=== PATIENT | female | born 1995 | race Caucasian/White ===

== ENCOUNTER → 2021-05-02 10:35 | Outpatient (CLI) | payer OTHER, SELFPAY ==
[2021-05-04 18:35] LABS: AFP, Serum 20.8 ng/mL (.); Calc Gestational Age Ultrasound (.); Estriol, Free 0.41 ng/mL (.); Inhibin A, Dimeric 209.86 pg/mL (.); Inhibin A, MoM See interpretation. (.); Maternal Ethnicity Caucasian (.); Maternal Weight 211 lbs (.); Number of Fetuses No (.); OSBR Risk 1 IN 10000 (.); Results Report (.); Test Results See interpretation. (.); hCG, MoM See interpretation. (.); hCG, Serum 21729 mIU/mL (.)
== END ==
PROVIDERS: Referring Provider Family Medicine; Visit Provider Family Medicine
DX: Z34.90 Encounter for supervision of normal pregnancy, unspecified, unspecified trimester (principal); Z3A.16 16 weeks gestation of pregnancy
CPT/HCPCS: 36415; 82105; 82677; 84702; 86336

== ENCOUNTER → 2021-06-01 10:04 | Outpatient (CLI) | payer OTHER, SELFPAY ==
--- NOTE | 2021-06-01 10:05 | DI.US.S_ITS ---
PROCEDURE: US OB >= 14 WEEKS FETUS INDICATIONS: ANATOMY OUTSIDE/PRIOR DATING DATA: Last menstrual period (LMP): 01/08/2021. LMP-based estimated date of delivery (BETTY): 10/15/2021 First dating scan (date and location): 06/01/2021 . Estimated date of delivery (BETTY) from first dating scan: 08/15/2022 . TECHNIQUE: Real-time scanning was performed of the fetus, with image documentation and biometric measurements. Endovaginal scanning: No COMPARISON: None. FINDINGS: General: A single living intrauterine gestation is present. Presentation: Variable. Placenta: Placental position is posterior , without previa. Amniotic fluid index: 16.0 cm, normal range is 5-24 cm. heart rate: 139 beats per minute. Maternal cervical canal: 8.2 cm long. Normal lower limit is 2.5 cm. biometrics: Biparietal diameter: 20 weeks 4 days Head circumference: 20 weeks 1 day Abdominal circumference: 20 weeks 4 days Femur length: 20 weeks 2 days Estimated gestational age from initial scan: not applicable. Composite gestational age from present scan: 20 weeks 3 days Estimated weight and percentile: 353 g; 37th percentile based on LMP. Measurement variability for biometric dating: +/- 7 days from 14 weeks to 15 weeks 6 days gestation, +/- 10 days from 16 weeks to 21 weeks 6 days gestation, +/- 2 weeks from 22 weeks to 27 weeks 6 days gestation, +/- 3 weeks for 28 weeks gestation or later. weight reference: 4500 g or EFW >90/95% is considered macrosomia or large for gestational age. EFW <10% is small for gestational age. EFW 5% or less is considered intra-uterine growth restriction. Anatomic survey: Neuro: Ventricles are non-dilated at less than 10 mm. Cisterna magna is normal at 3-11 mm. Cerebellum is normal in size and morphology. Nuchal skin fold: Normal at less than 6 mm between 14-21 weeks gestational age. Face: Suboptimally visualized. Spine: No evidence for spina bifida. Heart: Suboptimally visualized. Diaphragm: Diaphragm is intact. Stomach: Left-sided stomach is present. Kidneys: Mild right renal pyelectasis with the renal pelvis measuring 7.0 mm. Normal is less than 5 mm in 2nd trimester, less than 7 mm in 3rd trimester. Cord: 3-vessel cord has orthotopic insertion. Placental cord insertion site not well seen. Bladder: Normal in size. Extremities: All 4 extremities identified. IMPRESSION: 1. 20 weeks living IUP. 2. Limited anatomic survey as above and there is mild pyelectasis of the right kidney. Follow-up recommended. Dictated by: Otilio Amado [facility] Interpreted: Samantha Nam MD on 06/01/2021 at 13:05 Transcribed by: AMARA on 06/01/2021 at 13:08 Approved by: Samantha Nam M.D. on 06/01/2021 at 13:10
== END ==
PROVIDERS: PCP Family Medicine; Referring Provider Family Medicine; Visit Provider Family Medicine
DX: Z36.89 Encounter for other specified antenatal screening (principal); Z3A.20 20 weeks gestation of pregnancy
CPT/HCPCS: 76811

== ENCOUNTER → 2021-06-15 11:56 | Outpatient (CLI) | payer OTHER, SELFPAY ==
--- NOTE | 2021-06-15 11:58 | DI.US.S_ITS ---
PROCEDURE: US OB FOLLOW UP INDICATIONS: RE-EVALUATE OUTSIDE/PRIOR DATING DATA: Last menstrual period (LMP): 01/08/2021. LMP-based estimated date of delivery (BETTY): 10/15/2021. First dating scan (date and location): 06/01/2021. Estimated date of delivery (BETTY) from first dating scan: 10/16/2021. TECHNIQUE: Real-time scanning was performed of the fetus, with image documentation. COMPARISON: [facility], , OB >= 14 WEEKS FETUS, 06/01/2021, 11:04. FINDINGS: A single living intrauterine gestation is present. Presentation: Vertex. Placenta: Placental position is posterior, without previa. Amniotic fluid index: 11.7 cm, normal range is 5-24 cm. heart rate: 157 beats per minute. Maternal cervical canal: 3.9 cm long. Normal lower limit is 2.5 cm. Estimated gestational age from initial scan: 22 weeks, 3 days. face/lips/orbits, four-chamber heart and ventricular outflow tracts, as well as right upper extremity are visualized and are within normal limits. Prominent right renal pelvis is again seen measures 6.3 mm in diameter. IMPRESSION: 1. Single live intrauterine with fetus in vertex presentation. heart rate is 157 beats per minute. Normal amount of amniotic fluid. 2. facial profile, four-chamber heart and ventricular outflow tract and right upper extremity are visualized and are within normal limits. Mild prominence of right renal pelvis is again seen measures 6.3 cm in diameter improved since previous study which measured 7 mm in diameter. Dictated by: Yaya Bah M.D. on 06/15/2021 at 15:58 Approved by: Yaya Bah M.D. on 06/15/2021 at 16:01
== END ==
PROVIDERS: PCP Family Medicine; Referring Provider Family Medicine; Visit Provider Family Medicine
DX: O28.3 Abnormal ultrasonic finding on antenatal screening of mother (principal); Z3A.22 22 weeks gestation of pregnancy
CPT/HCPCS: 76816

== ENCOUNTER 2021-07-09 00:56 | Outpatient (CLI) | payer OTHER, SELFPAY | END 2021-07-09 01:41 | disposition home or self-care (01) | LOC: OB 07-12 07:41 | PROVIDERS: PCP Family Medicine; Referring Provider Family Medicine; Visit Provider Family Medicine | DX: O20.9 Hemorrhage in early pregnancy, unspecified (principal); Z3A.25 25 weeks gestation of pregnancy | CPT/HCPCS: 59025; G0378; G0379 ==

== ENCOUNTER → 2021-07-27 10:35 | Outpatient (CLI) | payer OTHER, SELFPAY ==
[2021-07-27 13:01] LABS: Add Manual Diff / Slide Review NO; Basophils Absolute Auto 0 /uL (0-100); Basophils Percent Auto 0.4 % (0-2); Eosinophils Absolute Auto 100 /uL (0-450); Eosinophils Percent Auto 0.6 % (2-4); Hematocrit 33.7 % (36-46); Hemoglobin 11.4 g/dL (12.0-16.0); Lymphocytes Absolute Auto 2600 /uL (1100-4500); Lymphocytes Percent Auto 27.5 % (25-40); Mean Corpuscular HGB Conc 33.9 % (30-36); Mean Corpuscular Hemoglobin 28.6 PG (26-34); Mean Corpuscular Volume 84.4 fL (80-100); Monocytes Absolute Auto 500 /uL (0-900); Monocytes Percent Auto 5.5 % (3-14); Neutrophils Absolute Auto 6200 /uL (1500-7000); Platelet Count 222 X10^3/uL (150-400); Red Cell Distribution Width 12.8 % (11.6-14.8); White Blood Cell Count 9.3 X10^3/uL (4.5-11.0)
[2021-07-27 13:12] LABS: GTT (PREG) 1 Hour PP 50gm Dose 124 mg/dL (76-139)
== END ==
PROVIDERS: PCP Family Medicine; Referring Provider Family Medicine; Visit Provider Family Medicine
DX: Z3A.26 26 weeks gestation of pregnancy (principal); Z01.83 Encounter for blood typing
CPT/HCPCS: 36415; 82950; 85025; 86850; 86900; 86901

== ENCOUNTER → 2021-08-01 09:28 | Outpatient (CLI) | payer OTHER, SELFPAY ==
--- NOTE | 2021-08-01 09:29 | DI.US.S_ITS ---
PROCEDURE: US OB LIMITED INDICATIONS: F/U MILD PROMINENCE OF RT RENAL PELVIS OUTSIDE/PRIOR DATING DATA: Last menstrual period (LMP): 01/08/2021. LMP-based estimated date of delivery (BETTY): 10/15/2021. First dating scan (date and location): 06/01/2021. Estimated date of delivery (BETTY) from first dating scan: 10/16/2021. TECHNIQUE: Real-time scanning was performed of the fetus, with image documentation. Endovaginal scanning: No COMPARISON: [facility], , OB FOLLOW UP, 06/15/2021, 12:24. FINDINGS: A single living intrauterine gestation is present. Presentation: Cephalic. Placenta: Placental position is posterior, without previa. Lower placental edge 0.5 to 3 cm from internal cervical os qualifies as low lying placenta. Marginal previa is defined as lower edge 0 to 0.5 mm from internal os. Amniotic fluid index: 11 cm, normal range is 5-24 cm. heart rate: 158 beats per minute. Maternal cervical canal: For cm long. Normal lower limit is 2.5 cm. Report any funneling of internal cervical os: % of canal length, shape (U or V), width or any U-shaped funneling. Estimated gestational age from initial scan: 29 weeks 1 day Survey of anatomy currently includes normal bilateral renal pelves.. IMPRESSION: 1. Single living intrauterine gestation. 2. Normal renal pelves bilaterally. Dictated by: Ethan Cruz M.D. on 08/01/2021 at 11:26 Approved by: Ethan Cruz M.D. on 08/01/2021 at 11:28
== END ==
PROVIDERS: PCP Family Medicine; Referring Provider Family Medicine; Visit Provider Family Medicine
DX: Z3A.29 29 weeks gestation of pregnancy; Z36.2 Encounter for other antenatal screening follow-up
CPT/HCPCS: 76815

== ENCOUNTER → 2021-09-21 11:26 | Outpatient (CLI) | payer OTHER, SELFPAY ==
[2021-09-22 13:21] LABS: Strep Grp B PCR NEG for Grp B Strep
== END ==
PROVIDERS: PCP Family Medicine; Referring Provider Family Medicine; Visit Provider Family Medicine
DX: Z34.03 Encounter for supervision of normal first pregnancy, third trimester (principal); Z3A.36 36 weeks gestation of pregnancy
CPT/HCPCS: 87653

== ENCOUNTER 2021-10-04 11:18 | Inpatient (IN) | payer OTHER, SELFPAY ==
[2021-10-04 13:10] LABS: Aspartate Aminotransferase 19 IU/L (14-36); Blood Urea Nitrogen 9 mg/dL (7-17); Estimated Glomerular Filt Rate > 60.0 mL/min (>60); Uric Acid 4.2 mg/dL (2.5-6.2)
[2021-10-04 13:11] LABS: Alanine Aminotransferase 21 IU/L (<35); Albumin 3.4 g/dL (3.5-5.0); Albumin Globulin Ratio 1.1 (1.0-2.8); Alkaline Phosphatase 116 U/L (38-126); Aspartate Aminotransferase 20 IU/L (14-36); BUN Creatinine Ratio 17.2 (6-22); Bilirubin Total 0.3 mg/dL (0.2-1.3); Blood Urea Nitrogen 10 mg/dL (7-17); Calcium 9.8 mg/dL (8.4-10.2); Carbon Dioxide 23 mmol/L (22-32); Chloride 104 mmol/L (98-107); Estimated Glomerular Filt Rate > 60.0 mL/min (>60); Globulin 3.1 g/dL (1.7-4.1); Glucose 115 mg/dL (70-100); HEMOLYSIS < 15 (0-50); Potassium 4.2 mmol/L (3.4-5.1); Sodium 133 mmol/L (137-145); Total Protein 6.5 g/dL (6.3-8.2)
[2021-10-04 13:23] LABS: COVID19 -Nasal RAPID Negative (Negative)
--- NOTE | 2021-10-04 15:57 | PM.OBTRLD ---
Visit Information Visit Information Date of evaluation: 10/04/21 Primary OB Provider: Noy Ladd Reason for Evaluation: Yes non-stress test non-stress test reason: hypertension/pre-eclampsia Comments/Additional reasons for admission: 26yo at 38w2d here for NST and labs for elevated BP in clinic. Pt denies any headaches, vision changes, RUQ pain, worsening edema. She is feeling her baby move, although less than previously. No contractions, vaginal bleeding, LOF. FORMERLY [facility], [facility] Medical History (Updated 10/04/21 @ 16:08 by Noy Ladd MD) Anxiety (~2018) Depression (~2018) Surgical History (Updated 04/18/21 @ 13:19 by Debo Brooks, RN) [place] teeth extracted (~2016) Family History (Updated 04/18/21 @ 13:24 by Debo Brooks, RN) Mother No problems noted. Father Psoriasis Chronic eczema Former smoker Gum disease Autoimmune disease, not elsewhere classified Grandmother No problems noted. Grandfather Stroke Grandmother Stroke Stomach cancer Grandfather No problems noted. Social History marital status: unmarried,living together (Fransisca' stationed in [place] now, will be moving in Jul 2021. ) number of children: 0 lives independently: Yes caregiver/support person: No housing: house pets and animals: Yes (2 dogs: safe, aware. 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 ) current occupational exposures/hazards: No special flavio needs: No seatbelt use: always working smoke detector in home: Yes fire extinguisher in home: Yes carbon monox detector in home: Yes firearms in home: Yes firearms unloaded and locked: Yes do you feel safe at home: Yes Smoking Status: Former smoker (Social smoker, occasional. 1-3 cigs/month. Quit Oct 2020. ) Tobacco: How many years used: 3 quit status: quit date established (10/2020.) second hand exposure: No alcohol intake: former (Stopped alcohol 3 months before conception. 1-3 glasses wine / week when not . ) substance use type: does not use during the past year weight has: remained stable well-balanced diet: about half the time (r/t nausea.) daily servings fruits/ve-1 (Discussed more produce. ) caffeine: No Type(s) of exercise: walking (Hiking on weekends also. ) and normal ROM and activity (Active lifestyle. ) frequency: 3-4 times per week duration: 30-45 minutes/day Objective Labs Result Diagrams: 10/04/21 12:22 10/04/21 12:22 Labs: Laboratory Results - last 24 hr 10/04/21 10/04/21 10/04/21 12:22 12:22 12:22 WBC 9.5 RBC 4.24 Hgb 11.4 L Hct 33.4 L MCV 78.9 L MCH 26.8 MCHC 34.0 RDW 13.9 Plt Count 221 Neut % (Auto) 72.7 Lymph % (Auto) 19.4 L [place] % (Auto) 6.8 Eos % (Auto) 0.5 L Baso % (Auto) 0.6 Neut # (Auto) 6900 Lymph # (Auto) 1800 [place] # (Auto) 600 Eos # (Auto) 0 Baso # (Auto) 100 Sodium 133 L Potassium 4.2 Chloride 104 Carbon Dioxide 23 BUN 10 9 Creatinine 0.58 0.60 Estimated GFR > 60.0 > 60.0 BUN/Creatinine Ratio 17.2 15.0 Glucose 115 H Uric Acid 4.2 Calcium 9.8 Total Bilirubin 0.3 AST 20 19 ALT 21 Alkaline Phosphatase 116 Total Protein 6.5 Albumin 3.4 L Globulin 3.1 Albumin/Globulin Ratio 1.1 SARS-CoV-2 (PCR) 10/04/21 13:00 WBC RBC Hgb Hct MCV MCH MCHC RDW Plt Count Neut % (Auto) Lymph % (Auto) [place] % (Auto) Eos % (Auto) Baso % (Auto) Neut # (Auto) Lymph # (Auto) [place] # (Auto) Eos # (Auto) Baso # (Auto) Sodium Potassium Chloride Carbon Dioxide BUN Creatinine Estimated GFR BUN/Creatinine Ratio Glucose Uric Acid Calcium Total Bilirubin AST ALT Alkaline Phosphatase Total Protein Albumin Globulin Albumin/Globulin Ratio SARS-CoV-2 (PCR) Negative Evaluation Evaluation Baseline heart rate: 145 Variability: Moderate (11-25) monitor accelerations: Present Monitor Decelerations: Absent Category of Tracing: Reactive Diagnosis, Plan/Disposition Final Diagnosis (1) Gestational hypertension: Status: Acute Plan/Disposition Plan: 26yo at 38w2d here for NST and labs for elevated BP in clinic. BPs persistently elevated, for > 4 hours, meeting criteria for gestational hypertension. Protein/creatinine still pending, but no evidence of HELLP. Due to advanced gestational age > 37 weeks, plan for IOL tonight. Discussed symptoms that warrant immediate eval, otherwise pt stable for d/c home for a few hours prior to returning for induction. NST reactive. OB Disposition: home
[2021-10-04 16:38] LABS: Creatinine Urine Random 49.3 mg/dL; Protein (Total) Urine Random 11 mg/dL (0-12); Protein Creatinine Ratio Urine 0.22 GRAM/24H
[2021-10-04 18:48] LABS: Add Manual Diff / Slide Review NO; Basophils Absolute Auto 100 /uL (0-100); Basophils Percent Auto 0.6 % (0-2); Eosinophils Absolute Auto 0 /uL (0-450); Eosinophils Percent Auto 0.5 % (2-4); Hematocrit 33.4 % (36-46); Hemoglobin 11.4 g/dL (12.0-16.0); Lymphocytes Absolute Auto 1800 /uL (1100-4500); Lymphocytes Percent Auto 19.4 % (25-40); Mean Corpuscular Hemoglobin 26.8 PG (26-34); Mean Corpuscular Volume 78.9 fL (80-100); Monocytes Absolute Auto 600 /uL (0-900); Monocytes Percent Auto 6.8 % (3-14); Neutrophils Absolute Auto 6900 /uL (1500-7000); Neutrophils Percent Auto 72.7 % (50-75); Platelet Count 221 X10^3/uL (150-400); Red Blood Cell Count 4.24 X10^6/uL (4.0-5.2); Red Cell Distribution Width 13.9 % (11.6-14.8); White Blood Cell Count 9.5 X10^3/uL (4.5-11.0)
[2021-10-04 19:06] VITALS: BP 125/73
[2021-10-04] MEDS: miSOPROStoL 25 MCG TABLET VAG (20:24)
[2021-10-05] MEDS: miSOPROStoL 25 MCG TABLET VAG (00:27)
--- NOTE | 2021-10-05 07:31 | P.HPOB_ITS ---
OB HPI Date/Time Date of admission: 10/04/21 Date Patient Seen: 10/05/21 Time Patient Seen: 07:45 History of Present Condition Chief complaint: NST BETTY Calculator Estimated Delivery Date Method Current WG Current Estimate 10/16/21 Manual 38w 3d Final BETTY - NELLY Other Estimates 10/16/21 LMP (Certain) 38w 3d 10/16/21 Ultrasound #1 38w 3d Estimated Gestational Age (weeks): 38w3d : 1 Para: 0 Narrative: 26yo at 38w3d here for IOL for gestational hypertension. The pt remains asymptomatic, without vision changes, headache, worsening swelling, RUQ pain. She was diagnosed yesterday with multiple elevated BPs spanning an over 4 hour time. Her has been otherwise uncomplicated. Mild right renal pelviectasis on ultrasound resolved on repeat imaging. The pt denies any vaginal bleeding, LOF, or contractions. She is feeling her baby move regularly. care: good care, initiated at week # (8) and pounds weight gain (47) Dating criteria OB: LMP confirmed by 1st trimester US Ultrasounds: normal 1st trimester US, normal mid trimester US and abnormal US findings Abnormal ultrasound findings: Right renal pelviectasis - resolved on repeat ultrasound Obstetrical complications: none Medical complications OB: none Indications Indication for induction OB: gestational HTN/pre-eclampsia Preadmission Labs Last OB Lab Results: Blood Type A Positive 10/04/21 19:45 10/04/21 Antibody Screen Negative 10/04/21 19:45 10/04/21 Hematocrit 33.4 % (36-46) L 10/04/21 12:22 10/04/21 Hemoglobin 11.4 g/dL (12.0-16.0) L 10/04/21 12:22 10/04/21 Glucose 1 Hour 124 mg/dL (76-139) 07/27/21 10:58 07/27/21 Group B Streptococcus (PCR) Neg for grp b strep 09/21/21 11:26 09/21/21 -: Chlamydia screen: positive (negative HAROON), Gonorrhea screen: negative and Urine: negative Genetic Screens: Quad screen: Normal External Labs -: Urine: negative -: Rubella: immune HCAB: negative Evaluation Evaluation Baseline heart rate: 150 Variability: Moderate (11-25) monitor accelerations: Absent Monitor Decelerations: Absent Status: Category l Dilation (cm): 0 Effacement (%): 50 Dilation: Closed Effacement: 40-50% station: -2 Position of cervix: mid Consistency: soft Koroma score: 5 PFSH Medical History (Updated 10/04/21 @ 16:08 by Noy Ladd MD) Anxiety (~2018) Depression (~2018) Surgical History (Updated 04/18/21 @ 13:19 by Debo Brooks RN) [place] teeth extracted (~2016) Family History (Updated 04/18/21 @ 13:24 by Debo Brooks RN) Mother No problems noted. Father Psoriasis Chronic eczema Former smoker Gum disease Autoimmune disease, not elsewhere classified Grandmother No problems noted. Grandfather Stroke Grandmother Stroke Stomach cancer Grandfather No problems noted. Social History marital status: unmarried,living together (Fransisca' stationed in [place] now, will be moving in Jul 2021. ) number of children: 0 lives independently: Yes caregiver/support person: No housing: house pets and animals: Yes (2 dogs: safe, aware. 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 ) current occupational exposures/hazards: No special flavio needs: No seatbelt use: always working smoke detector in home: Yes fire extinguisher in home: Yes carbon monox detector in home: Yes firearms in home: Yes firearms unloaded and locked: Yes do you feel safe at home: Yes Smoking Status: Former smoker Tobacco: How many years used: 3 quit status: quit date established (10/2020.) second hand exposure: No alcohol intake: former (Stopped alcohol 3 months before conception. 1-3 glasses wine / week when not . ) substance use type: does not use during the past year weight has: remained stable well-balanced diet: about half the time (r/t nausea.) daily servings fruits/ve-1 (Discussed more produce. ) caffeine: No Type(s) of exercise: walking (Hiking on weekends also. ) and normal ROM and activity (Active lifestyle. ) frequency: 3-4 times per week duration: 30-45 minutes/day Meds Home Medications and Allergies Home Medications Medication Instructions Recorded Confirmed Type prenat.vits,parisa,fps-mmvg-vripe 1 tab PO DAILY 04/18/21 10/04/21 History breast pump #1 ea 09/14/21 10/04/21 Rx Allergies Allergy/AdvReac Type Severity Reaction Status Date / Time No Known Drug Allergies Allergy Verified 04/18/21 13:07 OB Exam Narrative Exam Narrative: Gen: NAD, sitting comfortably in bed, appears well CV: RRR, no murmurs Resp: clear to auscultation bilaterally Abd: soft, gravid Ext: trace edema Neuro: no clonus Objective Labs Result Diagrams: 10/04/21 12:22 10/04/21 12:22 Labs: Laboratory Results - last 24 hr 10/04/21 10/04/21 10/04/21 12:22 12:22 12:22 WBC Cancelled 9.5 RBC Cancelled 4.24 Hgb Cancelled 11.4 L Hct Cancelled 33.4 L MCV Cancelled 78.9 L MCH Cancelled 26.8 MCHC Cancelled 34.0 RDW Cancelled 13.9 Plt Count Cancelled 221 Neut % (Auto) Cancelled 72.7 Lymph % (Auto) Cancelled 19.4 L [place] % (Auto) Cancelled 6.8 Eos % (Auto) Cancelled 0.5 L Baso % (Auto) Cancelled 0.6 Neut # (Auto) Cancelled 6900 Lymph # (Auto) Cancelled 1800 [place] # (Auto) Cancelled 600 Eos # (Auto) Cancelled 0 Baso # (Auto) Cancelled 100 Sodium 133 L Potassium 4.2 Chloride 104 Carbon Dioxide 23 BUN 10 Creatinine 0.58 Estimated GFR > 60.0 BUN/Creatinine Ratio 17.2 Glucose 115 H Uric Acid Calcium 9.8 Total Bilirubin 0.3 AST 20 ALT 21 Alkaline Phosphatase 116 Total Protein 6.5 Albumin 3.4 L Globulin 3.1 Albumin/Globulin Ratio 1.1 U Random Total Protein Urine Creatinine Protein/Creatinin Ratio SARS-CoV-2 (PCR) Blood Type Antibody Screen 10/04/21 10/04/21 10/04/21 12:22 13:00 13:16 WBC RBC Hgb Hct MCV MCH MCHC RDW Plt Count Neut % (Auto) Lymph % (Auto) [place] % (Auto) Eos % (Auto) Baso % (Auto) Neut # (Auto) Lymph # (Auto) [place] # (Auto) Eos # (Auto) Baso # (Auto) Sodium Potassium Chloride Carbon Dioxide BUN 9 Creatinine 0.60 Estimated GFR > 60.0 BUN/Creatinine Ratio 15.0 Glucose Uric Acid 4.2 Calcium Total Bilirubin AST 19 ALT Alkaline Phosphatase Total Protein Albumin Globulin Albumin/Globulin Ratio U Random Total Protein 11 Urine Creatinine 49.3 Protein/Creatinin Ratio 0.22 SARS-CoV-2 (PCR) Negative Blood Type Antibody Screen 10/04/21 19:45 WBC RBC Hgb Hct MCV MCH MCHC RDW Plt Count Neut % (Auto) Lymph % (Auto) [place] % (Auto) Eos % (Auto) Baso % (Auto) Neut # (Auto) Lymph # (Auto) [place] # (Auto) Eos # (Auto) Baso # (Auto) Sodium Potassium Chloride Carbon Dioxide BUN Creatinine Estimated GFR BUN/Creatinine Ratio Glucose Uric Acid Calcium Total Bilirubin AST ALT Alkaline Phosphatase Total Protein Albumin Globulin Albumin/Globulin Ratio U Random Total Protein Urine Creatinine Protein/Creatinin Ratio SARS-CoV-2 (PCR) Blood Type A Positive Antibody Screen Negative Assessment and Plan Assessment and Plan Assessment and Plan narrative: 26yo at 38w3d here for IOL for newly diagnosed gestational hypertension. Pt asymptomatic, negative HELLP/pre-eclampsia labs yesterday. GBS negative, Rh positive. Received 2 doses of cytotec overnight, no significant cervical change. Koroma score 5. - Expectant management, anticipate - FHT reassuring - GBS negative, no prophylaxis indicated - Desires natural methods for pain control - Encourage ambulation - Give 3rd dose cytotec now. Re-evaluate after for possible pitocin vs norman catheter.
[2021-10-05] MEDS: LACTATED RINGERS 1,000 ML 100 ML IV ×2 (10:48→21:17)
[2021-10-05] MEDS: OXYTOCIN PREMIX 30 UNIT/500 ML PLAST..BAG IV (10:49)
--- NOTE | 2021-10-05 13:03 | P.PNOB_ITS ---
Date/Time Date Patient Seen: 10/05/21 Time Patient Seen: 13:04 Pain Control Pain control: tolerating well Contractions Pitocin rate (mU/min): 3 Status status: Category ll Heart Rate Baseline: 160 Monitor Accelerations: Absent Monitor Decelerations: Variable Monitor Variability: Moderate Assessment and Plan Comments: 26yo at 38w3d here for IOL for newly diagnosed gestational hypertension.? Pt asymptomatic, negative HELLP/pre-eclampsia labs yesterday.? GBS negative, Rh positive.? Received 2 doses of cytotec overnight, no significant cervical change. Pt without accelerations when placed back on monitoring, then with large variable decel. After that, pt with frequently minimal variability, and still no accels. No response to fluid bolus and position changes. Attempted co ntraction stress testing, however due to persistent minimal variability now did not feel can proceed. Due to nonreassuring heart tones, recommend primary . Discussed risks vs benefits of surgery with the patient. Risks including but not limited to bleeding/hemorrhage, infection, injury to other organs such as the bowel and bladder, injury to fetus. The pt is agreeable to blood t ransfusion if medically necessary. Pt consented to surgery, consent was signed and placed in chart. The pt will receive 2g Ancef and have SCDs placed prior to surgery.
--- NOTE | 2021-10-05 13:03 | PM.PREOP ---
Pre-operative Note COVID-19 COVID-19 status: Negative Result date/Date tested (Pos, Neg/Pending): 10/04/21 Interval Note History & Physical reviewed/Exam performed by Physician: Yes Changes to H&P: No
[2021-10-05] MEDS: CEFAZOLIN 2 GM/20 ML SYRINGE IV (13:48)
--- NOTE | 2021-10-05 14:05 | SUR.OPER ---
Supine on Padded OR bed, head on pillow, safety belt at thigh, arms secured on padded arm boards at <90 degrees abduction. Bump under right buttock. Legs uncrossed, gel pad to heels, tape over blanket to lower legs.
--- NOTE | 2021-10-05 14:52 | SUR.OPER ---
Viable baby boy delivered at 1407. Placenta delivered. Cord blood tubes X2 and placenta given to L&D RN.
[2021-10-05 14:59] VITALS: BP 115/75; PULSE 75; RESP 14; TEMP 36.5; O2SAT 100
[2021-10-05 15:04] VITALS: BP 134/82; PULSE 74; RESP 12; O2SAT 100
[2021-10-05 15:09] VITALS: BP 129/75; PULSE 74; RESP 11; O2SAT 100
[2021-10-05 15:16] VITALS: BP 131/78; PULSE 78; RESP 14; TEMP 36.8; O2SAT 100
[2021-10-05 15:29] VITALS: BP 126/75; PULSE 78; RESP 12; TEMP 36.7; O2SAT 99
--- NOTE | 2021-10-05 16:08 | P.OP_ITS ---
Operative Date/Time/Diagnoses Date of procedure: 10/05/21 Time of procedure: 01:40 Pre-op diagnosis: 38w3d Gestational hypertension Rh positive GBS negative Nonreassuring heart tones Post-op diagnosis: same Procedure & Clinicians Procedure: Primary Same procedure as scheduled: Yes Indications: Nonreassuring heart tones Surgeon: Noy Ladd Accounting Manager: Leah Santiago Anesthesia Type: Spinal Operative Notes Findings: Normal uterus, ovaries, and tubes Closure Type: primary Specimen(s): cord blood and cord pH Intraoperative meds administered: Duramorph and Pitocin Applied: Catheter Estimated Blood Loss (mL): 650 Blood products transfused: none Procedure in detail: OPERATIVE COURSE: The patient was taken to the operating room where spinal anesthesia was placed. She was then prepared and draped in the normal sterile fashion in the dorsal supine position with a leftward tilt. Anesthesia was tested and found to be adequate. A Pfannensteil skin incision was then made with the scalpel and carried through to the underlying layer of fascia with the scalpel. The fascia was incised in the midline and the incision extended laterally with the Crain scissors. The superior aspect of the fascial incision was then grasped with Chaz clamps, elevated with the help of the neurosurgical physician assistant, and the underlying rectus muscles dissected off bluntly and sharply where needed. Attention was then turned to the inferior aspect of the incision which, in a similar fashion, was grasped, tented up with Chaz clamps, and the rectus muscle dissected off bluntly and sharply with Crain scissors. The rectus muscles were then in the midline, and the peritoneum was identified and entered bluntly. The peritoneal incision was then extended with good visualization of the bladder. Retraction was provided by the neurosurgical physician assistant. The bladder blade was then inserted and the vesicouterine peritoneum identified, grasped with pick-ups and entered sharply with the Metzenbaum scissors. The incision was then extended laterally and the bladder flap created digitally. The bladder blade was then reinserted and the lower uterine segment incised in a transverse fashion with the scalpel, with the neurosurgical physician assistant providing suction. The uterine incision was then extended by pulling superolaterally on both sides. Membranes were ruptured and fluid was meconium-stained. The bladder blade was removed the 's head was flexed out of OA position and delivered atraumatically, with fundal pressure by the neurosurgical physician assistant. The nose and mouth were suctioned with bulb suction and the cord was clamped and cut. The infant was handed off to the waiting nursing staff. Cord blood was collected for Rh status. Cord gases were sent. VBG pH 7.199, pCO2 57.7, pHCO3 22.5, base excess -6; ABG pH 7.14, pCO2 58.1, pHCO3 19.8, base excess -9. The placenta was then delivered with gentle cord traction. The uterus was cleared of all clots and debris. The uterine incision was repaired with O- Vicryl in a running, locked fashion. A second layer of the same suture was used for imbrication. A ujaecj-vy-hflau was used on the right side of the incision with O-Vicryl for excellent hemostasis. The gutters were cleared of all clots. Hysterotomy was investigated and found to be hemostatic. The bladder flap was closed with 2-O Chromic. The peritoneum was closed with 3-O Vicryl. The fascia was reapproximated with O-Vicryl in a running fashion. The subcutaneous tissue was reapproximated with 3-O Vicryl. The skin was closed with 4-O Vicryl. The neurosurgical physician assistant helped with retraction during closures. BABY A DELIVERY TIME: 14:07 SPONGE AND NEEDLE COUNTS: Correct x3. DRESSING: Aquacel ANTICOAGULATION: SCDs applied prior to Surgery Preop antibiotics given (see MAR). The patient was taken to recovery room having tolerated procedure well. Complications: none [place] Baby 1: Infant Gender: Male Presentation: vertex Placental Delivery Description: Spontaneous Cord Vessel Description: 3 Vessels score (1 min): 7 score (5 min): 9 weight: 6 lb 10.104 oz Post-operative Condition: stable Disposition: PACU Aftercare: routine postop
[2021-10-05] MEDS: ONDANSETRON 4 MG/2 ML INJ IV (17:40)
[2021-10-05] MEDS: LANOLIN OINT 7 GM 1 APPLIC TOP (21:18)
[2021-10-05] MEDS: ACETAMINOPHEN 325 MG TABLET 650 MG PO (21:18)
[2021-10-05] MEDS: OXYCODONE IR 5 MG TABLET PO (21:19)
[2021-10-05] MEDS: diphenhydrAMINE 50 MG/ML VIAL 25 MG IV (21:19)
[2021-10-06] MEDS: KETOROLAC 30 MG/ML VIAL IV ×2 (03:00→08:45)
[2021-10-06 07:49] LABS: Hematocrit 27.5 % (36-46); Hemoglobin 9.2 g/dL (12.0-16.0)
[2021-10-06] MEDS: DOCUSATE 100 MG CAPSULE 200 MG PO (09:15)
[2021-10-06] MEDS: PRENATAL VIT,CALC/IRON/FOLIC 1 TABLET 1 TAB PO (09:15)
--- NOTE | 2021-10-06 11:41 | PM.OBPN.1 ---
Subjective - OB Subjective Date Patient Seen: 10/06/21 Time Patient Seen: 10:00 Interval history: Pt reports that she is feeling well. She feels her pain is well controlled. She has passed gas and urinated. She is , but having some difficulty with latch and is concerned about tongue tie. Exam Vital Signs (past 8 hours): Oxygen Delivery Method Room Air Resp Auscultation: clear to auscultation bilaterally Cardio Rate: regular rate Rhythm: regular rhythm Heart Sounds: S1 normal, S2 normal and no murmurs GI Inspection: non-distended, incision (dressing c/d/i) and obesity Palpation: soft, No guarding and tender (appropriately tender) Auscultation: normal bowel sounds Other: fundus firm and below the umbilicus Extrem Right upper extremity: No no edema Objective Labs Result Diagrams: 10/06/21 06:45 10/04/21 12:22 Labs: Laboratory Results - last 24 hr 10/05/21 10/06/21 14:30 06:45 Hgb 9.2 L Hct 27.5 L Cord ABG pH 7.14 Cord ABG pCO2 58.1 Cord ABG pO2 28 Cord ABG HCO3 19.8 Cord ABG Base Excess -9 Cord ABG O2 Sat 36 Cord VBG pH 7.199 L Cord VBG pCO2 57.7 H Cord VBG pO2 16 L Cord VBG HCO3 22.5 Cord VBG Base Excess -6.00 Cord VBG O2 Sat 15 Assessment & Plan Assessment and Plan (1) Gestational hypertension: Status: Acute Plan Comments: Pt is a 26yo POD#1 s/p primary for nonreassuring FHT without complications. Pt doing well. - Normal /postoperative care - support Time Spent With Patient Time: Total time spent is greater than 50% in coordination of care (as documented) at patient's floor/unit and/or counseling patient: Time with patient: less than 15 minutes
[2021-10-06] MEDS: IBUPROFEN 600 MG TABLET PO (20:21)
[2021-10-06] MEDS: ACETAMINOPHEN 325 MG TABLET 650 MG PO (20:22)
[2021-10-07] MEDS: ACETAMINOPHEN 325 MG TABLET 650 MG PO ×2 (02:43→08:16)
[2021-10-07] MEDS: IBUPROFEN 600 MG TABLET PO ×2 (02:43→08:16)
[2021-10-07] MEDS: PRENATAL VIT,CALC/IRON/FOLIC 1 TABLET 1 TAB PO (08:15)
[2021-10-07] MEDS: DOCUSATE 100 MG CAPSULE 200 MG PO (08:19)
--- NOTE | 2021-10-07 08:22 | P.DS_ITS ---
Discharge Providers Provider Date of admission: 10/04/21 11:18 Discharge Date: 10/07/21 Primary care physician: Noy Ladd MD Consults: 10/05/21 16:21 Consult to [employer]ling [employer] Operator Routine Comment: Discharge provider: Noy Ladd MD Summary Hospital Course Date Patient Seen: 10/07/21 Time Patient Seen: 07:45 Diagnoses: 38w3d gestation Gestational hypertension Rh positive GBS negative Nonreassuring heart tones Hospital Course: The pt presented for IOL for gestational HTN. She received 2 doses of cytotec, with minimal cervical change. When put back onto monitoring for her third dose, FHT were noted to be relatively flat without accelerations. This persisted. NITRO MAN was attempted, however due to persistently minimal variability was then stopped. The decision was made to proceed with primary for nonreassuring heart tones. At the time of delivery, meconium was noted. The surgery was without complications, and the pt delivered a viable male infant. there were no complications. At the time of discharge she was voiding, ambulating, and passing flatus without difficulty. She was breastf eeding with improved latch after frenotomy. Her lochia was decreasing appropriately. Her pain was well controlled. She will f/u in 1 week for incision check. Peripartum Data Infant Delivery Method: Section Procedures: Primary complications: none [place] 1: Gender: Male Disposition of : home Discharge Diagnosis (1) Gestational hypertension: Status: Acute (2) S/P : Status: Acute Status at Discharge Cognitive/behavioral status at discharge: oriented Functional status at discharge: independent ambulation Overall status at discharge: patient is progressing back to baseline Time Spent with Patient Time attestation: Total time spent providing and/or coordinating discharge services: Objective Labs Result Diagrams: 10/06/21 06:45 10/04/21 12:22 Exam Vital Signs (past 8 hours): Oxygen Delivery Method Room Air Resp Auscultation: clear to auscultation bilaterally Cardio Rate: regular rate Rhythm: regular rhythm Heart Sounds: S1 normal, S2 normal and no murmurs GI Inspection: non-distended, incision (dressing c/d/i) and obesity Palpation: soft, No guarding and tender (appropriately tender) Auscultation: normal bowel sounds Other: fundus firm and below the umbilicus Extrem Right upper extremity: No no edema Discharge Plan Discharge Plan Patient Disposition: Home Discharge orders & Medications Prescriptions: New acetaminophen 325 mg Tablet 650 mg PO Q6H PRN (Reason: Fever/Mild Pain (1-3)) Qty: 60 0RF docusate sodium 100 mg Capsule 200 mg PO DAILY Qty: 60 0RF ibuprofen 600 mg Tablet 600 mg PO Q6H PRN (Reason: Fever/Mild Pain (1-3)) Qty: 60 0RF oxycodone 5 mg Tablet 5 mg PO Q4H PRN (Reason: Pain, Moderate (4-6)) Qty: 30 0RF Continued (DME) breast pump Device See Rx Instructions .ROUTE .MEDSUPPLY Qty: 1 0RF Rx Instructions: As directed prenat.vits,parisa,[id number]-fmht-nifut Tablet 1 tab PO DAILY 0RF Follow up/Referrals: Noy Ladd MD [Primary Care Provider] - 10/12/21 10:30 am (Please follow up with Dr. Ladd on the date provided above. Call the clinic with any questions, thank you! ) Diet/Activity/Treatments Diet: Diet as Tolerated and Regular Skin/Wound/Dressing Care Report to your healthcare provider any signs of infection, such as:: chills, fever, increased pain and unusual drainage Visit Report/Discharge Packet Instructions: DI for Stand Alone Forms: Discharge: Care Visit Report Forms: Patient Portal/API, Stroke Signs & Symptoms Discharge Data Primary Care Provider: Noy Ladd Discharges patient from system. Discharge Date/Time: 10/07/21 13:20
[2021-10-07 11:37] VITALS: BP 118/80; PULSE 79; RESP 16; TEMP 36.6
== END 2021-10-07 13:20 | disposition home or self-care (01) | DRG 788 ==
PROVIDERS: Admitting Provider Family Medicine; PCP Family Medicine; Referring Provider Family Medicine; Visit Provider Family Medicine
PROC: 10D00Z1 Extraction of Products of Conception, Low, Open Approach (ICD-10-PCS; CPT 59514; principal; 2021-10-05 13:00)
DX: O76 Abnormality in fetal heart rate and rhythm complicating labor and delivery (principal); O13.4 Gestational [pregnancy-induced] hypertension without significant proteinuria, complicating childbirth; Z3A.38 38 weeks gestation of pregnancy; Z37.0 Single live birth; O99.214 Obesity complicating childbirth; O77.0 Labor and delivery complicated by meconium in amniotic fluid; Z20.822 Contact with and (suspected) exposure to COVID-19
CPT/HCPCS: 36415; 59025; 59050; 59510; 59514; 80053; 82570; 82803; 84156; 84450; 84550; 85014; 85018; 85025; 86850; 86900; 86901; 87635; C9803; G0378; G0379; J0690; J1200; J1885; J2274; J2405; J2590

== ENCOUNTER → 2021-10-26 12:05 | Outpatient (CLI) | payer OTHER, SELFPAY | PROVIDERS: PCP Family Medicine; Visit Provider Family Medicine | DX: T81.49XA Infection following a procedure, other surgical site, initial encounter (principal) | CPT/HCPCS: 87070; 87075; 87077; 87186; 87205 ==

== ENCOUNTER → 2023-10-12 14:39 | Outpatient (CLI) | payer OTHER, SELFPAY ==
[2023-10-12 15:23] LABS: Appearance Urine UA SL CLOUDY; Bilirubin Urine UA NEGATIVE (NEGATIVE); Color Urine UA YELLOW; Glucose Urine UA NEGATIVE (Negative); Ketones Urine UA NEGATIVE (NEGATIVE); Leukocyte Esterase Urine UA 3+ (NEGATIVE); Nitrite Urine UA NEGATIVE (Negative); Occult Blood Urine UA NEGATIVE (Negative); Protein Urine UA NEGATIVE (Negative); Urobilinogen Urine UA 0.2 E.U./dL (0.2)
[2023-10-12 15:30] LABS: Bacteria Urine Many (>30); Culture Indicated Urine Cult Not Indicated; RBC Urine 0-1/HPF (0-5/HPF); Squamous Epithelial Cell Urine >30 /HPF (0-5/HPF); Urine Volume 10mL (spun); WBC Urine 10-30/HPF (0-5/HPF)
[2023-10-12 16:33] LABS: Alanine Aminotransferase 30 IU/L (<35); Aspartate Aminotransferase 21 IU/L (14-36); BUN Creatinine Ratio 14.3 (6-22); Blood Urea Nitrogen 8 mg/dL (7-17); Estimated Glomerular Filt Rate > 60 mL/min (>60); Uric Acid 2.8 mg/dL (2.5-6.2)
[2023-10-12 16:45] LABS: Add Manual Diff / Slide Review NO; Basophils Absolute Auto 0 /uL (0-100); Basophils Percent Auto 0.7 % (0-2); Eosinophils Absolute Auto 100 /uL (0-450); Eosinophils Percent Auto 0.8 % (2-4); Hematocrit 39.4 % (36-46); Hemoglobin 13.4 g/dL (12.0-16.0); Lymphocytes Absolute Auto 2300 /uL (1100-4500); Lymphocytes Percent Auto 33.1 % (25-40); Mean Corpuscular Volume 82.3 fL (80-100); Monocytes Absolute Auto 500 /uL (0-900); Monocytes Percent Auto 6.4 % (3-14); Neutrophils Absolute Auto 4200 /uL (1500-7000); Platelet Count 231 X10^3/uL (150-400); Red Blood Cell Count 4.78 X10^6/uL (4.0-5.2); White Blood Cell Count 7.1 X10^3/uL (4.5-11.0)
[2023-10-15 14:12] LABS: Varicella IgG Antibody 582 index (Immune >165)
[2023-10-15 15:28] LABS: Hepatitis B Surface Antigen NEGATIVE s/c (NEGATIVE); Rubella Antibody IgG 17.5 IU/mL (>15)
[2023-10-15 15:46] LABS: HIV 1 & 2 Ab/Ag 4th Gen Combo NEGATIVE (NEGATIVE); Hep C Virus Ab w/Reflex Quant NEGATIVE s/c (NEGATIVE)
[2023-10-16 04:09] LABS: RPR Screen Non Reactive (Non Reactive)
== END ==
PROVIDERS: PCP Family Medicine; Referring Provider Family Medicine; Visit Provider Family Medicine
DX: Z34.80 Encounter for supervision of other normal pregnancy, unspecified trimester (principal)
CPT/HCPCS: 36415; 80055; 81003; 81015; 82565; 84450; 84460; 84520; 84550; 86787; 86803; 86850; 86900; 86901; 87086; 87389

== ENCOUNTER → 2023-11-18 15:39 | Outpatient (CLI) | payer OTHER, SELFPAY ==
[2023-11-18 16:26] LABS: COVID-19 CEPHEID 4-PLEX PCR POSITIVE (Negative); Influenza A - CEPHEID Flu A NEGATIVE (NEGATIVE); Influenza B - CEPHEID Flu B NEGATIVE (NEGATIVE); Respiratory Syncytial Virus Negative (Negative)
== END ==
PROVIDERS: PCP Family Medicine; Visit Provider Physician Assistant Surgical
DX: R05.9 Cough, unspecified (principal)
CPT/HCPCS: 0241U

== ENCOUNTER → 2023-12-31 15:03 | Outpatient (CLI) | payer OTHER, SELFPAY ==
--- NOTE | 2023-12-31 15:04 | DI.US.S_ITS ---
PROCEDURE: US OB >= 14 WEEKS FETUS INDICATIONS: anatomy OUTSIDE/PRIOR DATING DATA: Last menstrual period (LMP): Unknown LMP-based estimated date of delivery (BETTY): Unknown First dating scan (date and location): Not available Estimated date of delivery (BETTY) from first dating scan: Not available The calculations are made using the working BETTY of 05/18/2024 TECHNIQUE: Real-time scanning was performed of the fetus, with image documentation and biometric measurements. Endovaginal scanning: Not performed COMPARISON: [facility], OB >= 14 WEEKS FETUS, 06/01/2021, 11:04. FINDINGS: General: A single living intrauterine gestation is present. Presentation: Variable Placenta: Placental position is anterior, without previa. Amniotic fluid index: 16.3 cm, normal range is 5-24 cm. Single deepest vertical pocket is 4.9 cm. heart rate: 141 beats per minute. Maternal cervical canal: 3.4 cm long. Normal lower limit is 2.5 cm. biometrics: Biparietal diameter: 4.9 cm, 20 weeks, 6 days. Head circumference: 18.7 cm, 21 weeks, 0 day. Abdominal circumference: 16.2 cm, 21 weeks, 2 days. Femur length: 3.3 cm, 20 weeks, 3 days. Clinically estimated gestational age: 20 weeks, 1 day. Composite gestational age from present scan: 20 weeks, 6 days. Estimated weight and percentile: 386 grams, 83 percent. Anatomic survey: Neuro: Ventricles are non-dilated at less than 10 mm. Cisterna magna is normal at 3-11 mm. Cerebellum is normal in size and morphology. Nuchal skin fold: Normal at less than 6 mm between 14-21 weeks gestational age. Face: Nose and lips, facial profile are normal. Spine: No evidence for spina bifida. Heart: 4-chambered heart is present, with normal left ventricular outflow tract. Right ventricular outflow tract is not visualized. Diaphragm: Diaphragm is intact. Stomach: Left-sided stomach is present. Kidneys: No hydronephrosis. Normal is less than 5 mm in 2nd trimester, less than 7 mm in 3rd trimester. Cord: 3-vessel cord has orthotopic insertion. Bladder: Normal in size. Extremities: All 4 extremities identified. IMPRESSION: 1. Single live intrauterine gestation with fetus in variable presentation. heart rate is 141 beats per minute. Normal amount of amniotic fluid. Estimated weight is at 83 percent. 2. Right ventricular outflow tract is not well seen on this study. Rest of the anatomic survey is normal. We strive to produce accurate, complete, and clear reports of imaging services. To assist us in improving patient care, this report was composed using standard report templates and voice recognition software. Therefore, it may contain abnormal punctuation, insertions and/or omissions. Occasional wrong-word or sound-alike substitutions may occur. Though we review the report and make efforts to correct it, we do recommend that the report be read carefully in proper context to recognize any text inaccuracies. Dictated by: Yaya Bah M.D. on 01/01/2024 at 10:47 Approved by: Yaya Bah M.D. on 01/01/2024 at 10:50
== END ==
PROVIDERS: PCP Family Medicine; Referring Provider Family Medicine; Visit Provider Family Medicine
DX: Z34.82 Encounter for supervision of other normal pregnancy, second trimester (principal); Z3A.20 20 weeks gestation of pregnancy
CPT/HCPCS: 76811

== ENCOUNTER → 2024-01-14 15:09 | Outpatient (CLI) | payer OTHER, SELFPAY ==
--- NOTE | 2024-01-14 15:09 | DI.US.S_ITS ---
PROCEDURE: US OB FOLLOW UP INDICATIONS: follow up OUTSIDE/PRIOR DATING DATA: The calculations are made using the ultrasound BETTY of May 18, 2024. TECHNIQUE: Real-time scanning was performed of the fetus, with image documentation. Endovaginal scanning: Not performed COMPARISON: [facility], , US OB >= 14 WEEKS FETUS, 12/31/2023, 15:28. [facility], , OB FOLLOW UP, 06/15/2021, 12:24. FINDINGS: A single living intrauterine gestation is present. Presentation: Variable. Placenta: Placental position is anterior, without previa. Amniotic fluid index: 15.1 cm, normal range is 5-24 cm. Single deepest vertical pocket is 4.8 cm. heart rate: 137 beats per minute. Maternal cervical canal: 3.8 cm long. Normal lower limit is 2.5 cm. The right ventricular outflow tract is again not well visualized secondary to positioning throughout the duration of the examination and constant movement. IMPRESSION: Single living intrauterine gestation. The right ventricular outflow tract is again not well visualized secondary to positioning and movement throughout the duration of the examination. Consider repeat follow-up imaging for better visualization of the right ventricular outflow tract. Dictated by: Gus Mendez M.D. on 01/14/2024 at 16:39 Approved by: Gus Mendez M.D. on 01/14/2024 at 16:44
== END ==
PROVIDERS: PCP Family Medicine; Referring Provider Family Medicine; Visit Provider Family Medicine
DX: Z34.82 Encounter for supervision of other normal pregnancy, second trimester (principal); Z3A.22 22 weeks gestation of pregnancy
CPT/HCPCS: 76816

== ENCOUNTER → 2024-02-04 15:01 | Outpatient (CLI) | payer OTHER, SELFPAY ==
--- NOTE | 2024-02-04 15:03 | DI.US.S_ITS ---
PROCEDURE: US OB FOLLOW UP INDICATIONS: follow up, structures not seen OUTSIDE/PRIOR DATING DATA: Last menstrual period (LMP): Unknown LMP-based estimated date of delivery (BETTY): Unknown First dating scan (date and location): Not available Estimated date of delivery (BETTY) from first dating scan: Not available The calculations are made using the working BETTY of 05/18/2024 TECHNIQUE: Real-time scanning was performed of the fetus, with image documentation. Endovaginal scanning: Not performed COMPARISON: [facility], OB >= 14 WEEKS FETUS, 12/31/2023, 15:28. [facility] OB FOLLOW UP, 01/14/2024, 15:36. FINDINGS: A single living intrauterine gestation is present. Presentation: Variable Placenta: Placental position is anterior, without previa. Amniotic fluid index: 14.3 cm, normal range is 5-24 cm. Single deepest vertical pocket is 4.0 cm. heart rate: 160 beats per minute. Maternal cervical canal: 4.0 cm long. Normal lower limit is 2.5 cm. Estimated gestational age from initial scan: 25 weeks, 1 day Right ventricular outflow tract is suboptimally visualized on the current study due to position and movement. IMPRESSION: 1. Single live intrauterine gestation with fetus in variable presentation. heart rate is 160 beats per minute. Normal JAE at 14.3 cm. 2. Right ventricular outflow tract is not well seen due to position and movement. Dictated by: Yaya Bah M.D. on 02/04/2024 at 17:07 Approved by: Yaya Bah M.D. on 02/04/2024 at 17:09
== END ==
PROVIDERS: PCP Family Medicine; Referring Provider Family Medicine; Visit Provider Family Medicine
DX: Z34.82 Encounter for supervision of other normal pregnancy, second trimester (principal); Z3A.25 25 weeks gestation of pregnancy
CPT/HCPCS: 76816

== ENCOUNTER → 2024-02-20 08:40 | Outpatient (CLI) | payer OTHER, SELFPAY ==
--- NOTE | 2024-02-20 08:42 | DI.US.S_ITS ---
PROCEDURE: US OB LIMITED INDICATIONS: cardiac views to complete anatomy u/s OUTSIDE/PRIOR DATING DATA: Last menstrual period (LMP): January 08, 2021. LMP-based estimated date of delivery (BETTY): October 15, 2021. First dating scan (date and location): [facility], June 01, 2021. Estimated date of delivery (BETTY) from first dating scan: October 16, 2021. The calculations are made using the ultrasound BETTY of May 18, 2024. TECHNIQUE: Real-time scanning was performed of the fetus, with image documentation. Endovaginal scanning: Not performed COMPARISON: [facility], US OB LIMITED, 08/01/2021, 10:06. FINDINGS: A single living intrauterine gestation is present. Presentation: Vertex Placenta: Placental position is anterior, without previa. Amniotic fluid index: 15.6 cm, normal range is 5-24 cm. Single deepest vertical pocket is 5.4 cm. heart rate: 143 beats per minute. Maternal cervical canal: 5.2 cm long. Normal lower limit is 2.5 cm. Estimated gestational age from initial scan: 27 weeks, 3 days The RVOT has a normal sonographic appearance. IMPRESSION: 1. Normal sonographic appearance of the right ventricular outflow tract. Dictated by: Denia Bejarano M.D. on 02/20/2024 at 11:28 Approved by: Denia Bejarano M.D. on 02/20/2024 at 11:32
[2024-02-20 12:32] LABS: GTT (PREG) 1 Hour PP 50gm Dose 132 mg/dL (76-139)
== END ==
PROVIDERS: PCP Family Medicine; Referring Provider Family Medicine; Visit Provider Family Medicine
DX: Z34.82 Encounter for supervision of other normal pregnancy, second trimester (principal); Z3A.27 27 weeks gestation of pregnancy
CPT/HCPCS: 76815; 82950

== ENCOUNTER 2024-02-22 11:40 | Emergency (ER) | payer OTHER, SELFPAY ==
--- NOTE | 2024-02-22 | DI.RAD.S_ITS ---
PROCEDURE: FL BARIUM SWALLOW INDICATIONS: The patient at the [facility] stuck in the throat. Report trouble swallowing. COMPARISON: [facility], , [facility] [place], 02/20/2024, 9:02. FINDINGS: The patient was examined under fluoroscopy. A limited examination was performed because of the patient's . Gastrografin was used initially demonstrating no abnormality. Subsequently, thick barium suspension was used. Function: There is normal esophageal peristalsis. There is normal transit of a calibrated barium tablet through the esophagus into the stomach. Morphology: There is no esophageal strictures, extrinsic mass effects, or diverticula. Mild irregularity is noted in the upper esophagus nearly upper esophageal sphincter. No mass or filling defect to suggest retained foreign body. IMPRESSION: 1. The upper esophagus is slightly irregular near the upper esophageal sphincter. No mass or mass effect to suggest retained foreign body. No esophageal obstruction. The patient had no difficulty swallowing and reported no pain. I discussed the result with Dr. Alicea in ER. Dictated by: Elena Sesay M.D. on 02/22/2024 at 14:47 Approved by: Elena Sesay M.D. on 02/22/2024 at 15:06
[2024-02-22 11:42] VITALS: BP 122/85; PULSE 102; RESP 15; TEMP 36.4; O2SAT 98; BMI 35.5
[2024-02-22 11:45] VITALS: BP 122/85; PULSE 109; O2SAT 97
--- NOTE | 2024-02-22 11:52 | ED.SKABFB ---
HPI - Skin/Abscess/Foreign Bdy General Chief complaint: Skin/Abscess/Foreign Body Stated complaint: Esophagus obstruction Time Seen by Provider: 02/22/24 11:44 Source: patient Mode of arrival: Ambulatory Limitations: no limitations History of Present Illness HPI narrative: Patient is a 28-year-old female. She was 27 weeks . Does not having any abdominal pain, vaginal bleeding, loss of fluid. She was here for evaluation of potential esophageal foreign body. Last evening she was eating a piece of steak. She states that she thought that she cut it up small enough but because she was dealing with her young child she stated that she swallowed very quickly and it was obviously too big of a bite. States that she thought that it got stuck in the back of her throat. She was still able to breathe. So able to tolerate her secretions. Attempted warm soda at home with only some improvement that she states that it now feels down into her chest (lower in her esophagus). She was not having any vomiting. She was still able to tolerate her secretions. Related Data Home Medications Medication Instructions Recorded Confirmed [id number] 400 mcg-om3 35 mg-dha 25 tab PO 09/26/23 02/05/24 mg-epa 5 mg-fish oil chewable tablet Previous Rx's Medication Instructions Recorded breast pump #1 ea 09/14/21 Allergies Allergy/AdvReac Type Severity Reaction Status Date / Time kiwi Allergy Mild ITCHING Verified 02/22/24 11:47 Review of Systems Constitutional Constitutional: Reports system reviewed and no additional complaints, except as documented Cardiovascular Cardiovascular: Reports system reviewed and no additional complaints, except as documented Respiratory Respiratory: Reports system reviewed and no additional complaints, except as documented Gastrointestinal Gastrointestinal: Reports system reviewed and no additional complaints, except as documented Genitourinary Genitourinary: Reports system reviewed and no additional complaints, except as documented Integumentary/Breasts Skin/Breast: Reports system reviewed and no additional complaints, except as documented Neurologic Neurologic: Reports system reviewed and no additional complaints, except as documented Patient History Medical History Gestational hypertension Depression (~2018) Anxiety (~2018) Surgical History (Updated 10/07/21 @ 15:05 by Noy Ladd MD) S/P [place] teeth extracted (~2016) Family History (Updated 09/26/23 @ 10:19 by Thuy Suazo RN) Mother Family estrangement depression Father Psoriasis Chronic eczema Former smoker Gum disease Autoimmune disease, not elsewhere classified Periodontal disease Grandmother No problems noted. Grandfather Stroke Grandmother Stroke Stomach cancer Heavy smoker Heart valve replaced Grandfather Family estrangement Stroke Social History marital status: number of children: 0 household members: spouse, family ([id number]) and children lives independently: Yes caregiver/support person: No housing: house pets and animals: Yes (dogs, cat, ducks; aware of precautions) education level: high school occupational status: unemployed current occupational exposures/hazards: No special flavio needs: No travel history: over 6 months ago seatbelt use: always helmet use: Yes water heater temp set < 120 deg: Yes working smoke detector in home: Yes fire extinguisher in home: Yes carbon monox detector in home: Yes firearms in home: Yes firearms unloaded and locked: Yes do you feel safe at home: Yes Smoking Status: Former smoker Tobacco: How many years used: 3 quit status: has quit before second hand exposure: Yes ( vapes in the house) alcohol intake: former (0-1 glass wine/week when not ) substance use type: does not use during the past year weight has: decreased > 10 lbs (still losing baby weight) well-balanced diet: daily or most days daily servings fruits/ve-4 caffeine: Yes (black tea some days) Type(s) of exercise: none and normal ROM and activity frequency: 3-4 times per week duration: 30-45 minutes/day Smoking Status: Former smoker alcohol intake frequency: holidays/special occasions only Substance Use Type: does not use Exam Initial Vital Signs Initial Vital Signs: Vital Signs Temperature 97.6 F 02/22/24 11:42 Pulse Rate 102 H 02/22/24 11:42 Respiratory Rate 15 02/22/24 11:42 Blood Pressure 122/85 02/22/24 11:42 Pulse Oximetry 98 02/22/24 11:42 Oxygen Delivery Method Room Air 02/22/24 11:42 Const General: cooperative, comfortable and No ill appearing HENMT Head: normal to inspection and normocephalic Resp Effort & Inspection: normal respiratory effort Cardio Rate: regular rate GI Inspection: normal to inspection and non-distended Skin General: no rashes or lesions noted Course Orders Ordered: ED Orders 02/22/24 12:46 Consult to General Surgery Stat Discontinued Medications Glucagon (Glucagon,Human Recombinant 1 Mg/Ml Vial) 1 mg IV NOW ONE Stop: 02/22/24 11:53 Last Admin: 02/22/24 12:35 Dose: 1 mg Documented By: KEYON Sodium Chloride (Normal Saline 0.9%) 1,000 mls @ 1,000 mls/hr IV BOLUS ONE Stop: 02/22/24 12:51 Last Infusion: 02/22/24 13:48 Dose: Infused Documented By: Admin: 02/22/24 12:34 Dose: 1,000 mls/hr Documented By: KEYON Vital Signs Vital signs: Vital Signs - 8 hr 02/22/24 11:42 02/22/24 11:45 02/22/24 11:45 Temperature 97.6 F Pulse Rate 102 H 109 H Respiratory Rate 15 Blood Pressure 122/85 122/85 Pulse Oximetry 98 97 Oxygen Delivery Method Room Air 02/22/24 14:13 02/22/24 14:13 Temperature Pulse Rate 92 H Respiratory Rate Blood Pressure 113/67 Pulse Oximetry 96 Oxygen Delivery Method Room Air MDM - Skin/Abscess/Foreign Bdy MDM Narrative Medical decision making narrative: Patient is not having any abdominal pain or related complaints. Do have some concern about at least a partial esophageal foreign body impaction. Discussed the case with Dr. Espinoza on-call for General surgery. Given the patient's status we will try a barium swallow to begin with to confirm whether or not there is an esophageal foreign body. During the barium swallow patient stated that she felt like all of her symptoms resolved. She was able to tolerate oral intake. Given the resolution of symptoms will discharge patient home with return precautions. Recommended a soft diet for the next couple days. She was given return precautions. She expressed understanding and agreement. Discharge Plan Departure Patient Disposition: Home Clinical Impression: Food impaction of esophagus Activity Restrictions/Additional Instructions: I do recommend a soft diet for the next couple days. Once your symptoms have completely resolved you can advance her diet as tolerated. Keep all of your scheduled medical appointments. Return to the emergency department for new symptoms. Prescriptions: No Action (DME) breast pump Device See Rx Instructions .ROUTE .MEDSUPPLY Qty: 1 0RF Rx Instructions: As directed [id number] oil 400 mcg-35 mg -25 mg-5 mg tablet,chewable PO Referrals: Noy Ladd MD [Primary Care Provider] - Stand Alone Forms: Patient Portal/API
[2024-02-22] MEDS: SODIUM CHLORIDE 0.9% 1,000 ML 1000 ML IV (12:34)
[2024-02-22] MEDS: GLUCAGON,HUMAN RECOMBINANT 1 MG/ML VIAL IV (12:35)
[2024-02-22 14:13] VITALS: BP 113/67; PULSE 92; O2SAT 96
--- NOTE | 2024-02-22 17:37 | PM.CALLCOV.1 ---
Call Coverage Note Note Date of Patient Contact: 02/22/24 Narrative of Care Provided: Patient not physically seen. Discussed with Nixon and chart reviewed. Given the and the fact that she can handle her own secretions I suggested barium swallow to determine if food bolus still existed. She had reported feeling it move down at one point barium swallow shows no food bolus.
== END 2024-02-22 14:34 | disposition home or self-care (01) ==
PROVIDERS: Emergency Provider Emergency Medicine; PCP Family Medicine
DX: T18.128A Food in esophagus causing other injury, initial encounter (principal)
CPT/HCPCS: 74220; 96361; 96374; 99283; 99284; J1610

== ENCOUNTER → 2024-04-30 12:13 | Outpatient (CLI) | payer OTHER, SELFPAY ==
[2024-05-01 10:09] LABS: Strep Grp B PCR NEG for Grp B Strep
== END ==
PROVIDERS: PCP Family Medicine; Visit Provider Family Medicine
DX: Z34.80 Encounter for supervision of other normal pregnancy, unspecified trimester (principal)
CPT/HCPCS: 87653

== ENCOUNTER 2024-05-16 05:46 | Inpatient (IN) | payer OTHER, SELFPAY ==
[2024-05-16] VITALS (7 sets, daily range): BP systolic 101–128; BP diastolic 46–76; PULSE 67–81; RESP 12–25; TEMP 36.7; O2SAT 98–99
--- NOTE | 2024-05-16 06:44 | PM.OBHP.IH.1 ---
OB HPI Date/Time Date of admission: 05/16/24 Date Patient Seen: 05/16/24 Time Patient Seen: 06:44 History of Present Condition Chief complaint: Section BETTY Calculator Estimated Delivery Date Method Current WG Current Estimate 05/18/24 Manual 39w 5d Final BETTY - NELLY Other Estimates 05/09/24 LMP (Certain) 41w 0d 05/18/24 Ultrasound #1 39w 5d Estimated Gestational Age (weeks): 39w5d Narrative: 28yo at 39w5d here for scheduled repeat . She is feeling her baby move regularly. No contractions, LOF, vaginal bleeding. Uncomplicated . care: good care, initiated at week # (8) and pounds weight gain (26) Dating criteria OB: based on 1st trimester US only Ultrasounds: normal 1st trimester US and normal mid trimester US Obstetrical complications: none Medical complications OB: none Indications Operative indications ( section): previous uterine surgery Preadmission Labs Last OB Lab Results: Blood Type A Positive 10/12/23 14:46 Antibody Screen Negative 10/12/23 14:46 Hct 39.4 % (36-46) 10/12/23 14:46 Hgb 13.4 g/dL (12.0-16.0) 10/12/23 14:46 Hep Bs Antigen Negative s/c (NEGATIVE) 10/12/23 14:46 Hepatitis C Antibody Negative s/c (NEGATIVE) 10/12/23 14:46 Rubella Antibody 17.5 IU/mL (>15) 10/12/23 14:46 VZV IgG Antibody 582 index (Immune >165) 10/12/23 14:46 Glucose 1 Hr 50 gm 132 mg/dL (76-139) 02/20/24 10:50 Group B Strep (PCR) Neg for grp b strep 04/30/24 12:13 -: Urine: negative Genetic Screens: Quad screen: Normal External Labs -: Urine: negative Prior (ies) Past Pregnancies Del. Date GA/Weeks Labor Lgth Wt Sex Route Outcome Anesthesia Place Delv Breastfeed Preg Comp Name 10/05/21 38 6 lb 10 oz Male live - full term IH 3-4 months induced hyper- failure to progress Roman Evaluation Evaluation Baseline heart rate: 130 Variability: Moderate (11-25) monitor accelerations: Present Monitor Decelerations: Absent Category of Tracing: Reactive PFSH Medical History Gestational hypertension Depression (~2018) Anxiety (~2018) Surgical History (Updated 10/07/21 @ 15:05 by Noy Ladd MD) S/P [place] teeth extracted (~2016) Family History (Updated 09/26/23 @ 10:19 by Thuy Suazo RN) Mother Family estrangement depression Father Psoriasis Chronic eczema Former smoker Gum disease Autoimmune disease, not elsewhere classified Periodontal disease Grandmother No problems noted. Grandfather Stroke Grandmother Stroke Stomach cancer Heavy smoker Heart valve replaced Grandfather Family estrangement Stroke Social History marital status: number of children: 0 household members: spouse, family ([id number]) and children lives independently: Yes caregiver/support person: No housing: house pets and animals: Yes (dogs, cat, ducks; aware of precautions) education level: high school occupational status: unemployed current occupational exposures/hazards: No special flavio needs: No travel history: over 6 months ago seatbelt use: always helmet use: Yes water heater temp set < 120 deg: Yes working smoke detector in home: Yes fire extinguisher in home: Yes carbon monox detector in home: Yes firearms in home: Yes firearms unloaded and locked: Yes do you feel safe at home: Yes Smoking Status: Former smoker Tobacco: How many years used: 3 quit status: has quit before second hand exposure: Yes ( vapes in the house) alcohol intake: former (0-1 glass wine/week when not ) substance use type: does not use during the past year weight has: decreased > 10 lbs (still losing baby weight) well-balanced diet: daily or most days daily servings fruits/ve-4 caffeine: Yes (black tea some days) Type(s) of exercise: none and normal ROM and activity frequency: 3-4 times per week duration: 30-45 minutes/day Meds Home Medications and Allergies Home Medications Medication Instructions Recorded Confirmed Type breast pump #1 ea 09/14/21 05/16/24 Rx [id number] 400 mcg-om3 35 mg-dha 25 1 tab PO DAILY 09/26/23 05/16/24 History mg-epa 5 mg-fish oil chewable tablet Allergies Allergy/AdvReac Type Severity Reaction Status Date / Time kiwi Allergy Mild ITCHING Verified 05/16/24 06:38 OB Exam Resp Effort & Inspection: normal respiratory effort Auscultation: clear to auscultation bilaterally Cardio Rate: regular rate Rhythm: regular rhythm Heart Sounds: S1 normal, S2 normal and no murmurs GI Inspection: non-distended Palpation: Yes soft and No tender Presentation: vertex Assessment and Plan Assessment and Plan Assessment and Plan narrative: 28yo at 39w5d here for scheduled repeat . has been uncomplicated. Rh positive, GBS negative. Pt previously consented for surgery in clinic. Risks including but not limited to bleeding/hemorrhage, infection, injury to other organs such as bowel/bladder, injury to fetus were discussed. The pt agrees to blood transfusion if medically necessary. Consent was signed. 3g Ancef, SCDs to be placed prior to surgery. Time-Based Coding :: [TOTAL MINUTES] spent with patient and on the chart (including review of chart, obtaining history, exam, reviewing outside data, placing orders, documenting exam and treatment plan, and counseling patient) on [DATE].
--- NOTE | 2024-05-16 06:48 | PM.PREOP ---
Pre-operative Note Interval Note History & Physical reviewed/Exam performed by Physician: Yes Changes to H&P: No
[2024-05-16 06:56] LABS: Add Manual Diff / Slide Review NO; Basophils Absolute Auto 100 /uL (0-100); Basophils Percent Auto 0.8 % (0-2); Eosinophils Absolute Auto 100 /uL (0-450); Eosinophils Percent Auto 0.7 % (2-4); Hematocrit 35.4 % (36-46); Lymphocytes Absolute Auto 2600 /uL (1100-4500); Lymphocytes Percent Auto 31.3 % (25-40); Mean Corpuscular HGB Conc 33.9 % (30-36); Mean Corpuscular Hemoglobin 27.1 PG (26-34); Mean Corpuscular Volume 79.9 fL (80-100); Monocytes Absolute Auto 500 /uL (0-900); Monocytes Percent Auto 6.5 % (3-14); Neutrophils Absolute Auto 5000 /uL (1500-7000); Neutrophils Percent Auto 60.7 % (50-75); Platelet Count 212 X10^3/uL (150-400); Red Blood Cell Count 4.43 X10^6/uL (4.0-5.2); Red Cell Distribution Width 14.5 % (11.6-14.8); White Blood Cell Count 8.3 X10^3/uL (4.5-11.0)
[2024-05-16] MEDS: FAMOTIDINE 20 MG/2 ML VIAL IV (07:22)
[2024-05-16] MEDS: METOCLOPRAMIDE 10 MG/2 ML INJ IV ×2 (07:23→13:42)
[2024-05-16] MEDS: CITRIC ACID/SODIUM CITRATE 15 ML SOLUTION 30 ML PO (07:35)
--- NOTE | 2024-05-16 08:02 | SUR.OPER ---
Supine on Padded OR bed, head on pillow, safety belt at thigh, arms secured on padded arm boards at <90 degrees abduction. Bump under right buttock. Legs uncrossed with pillow under knees, gel pad to heels, tape over blanket to lower legs.
[2024-05-16] MEDS: CEFAZOLIN 2 GM/100 ML PREMIX 100 ML IV (08:05)
[2024-05-16] MEDS: LACTATED RINGERS 1,000 ML 42 ML IV (08:27)
--- NOTE | 2024-05-16 08:47 | SUR.OPER ---
Addendum entered by Charleen Mon R.N. 05/16/24 08:51: Vaccuum extractor utilized x2. Original Note: Pre-procedure FHT= 148BPM. Viable infant born at 0837. APGARs= 9/9.
[2024-05-16] MEDS: ONDANSETRON 4 MG/2 ML INJ IV ×2 (09:32→16:06)
--- NOTE | 2024-05-16 09:54 | PM.OBCS.1 ---
Operative Date/Time/Diagnoses Date of procedure: 05/16/24 Time of procedure: 08:00 Pre-op diagnosis: 39w5d gestation GBS negative Rh positive Hx of prior Post-op diagnosis: same Procedure & Clinicians Procedure: Repeat Same procedure as scheduled: Yes Indications: Hx of prior Surgeon: Noy Ladd Click Yes if Unassisted: No Survey Statistician: Selin No Anesthesia Type: Spinal Operative Notes Findings: Normal uterus, ovaries, and tubes Closure Type: primary Specimen(s): cord blood Intraoperative meds administered: Duramorph, Ketorolac and Pitocin Applied: Catheter Estimated Blood Loss (mL): 550 Procedure in detail: OPERATIVE COURSE: The patient was taken to the operating room where spinal anesthesia was placed. She was then prepared and draped in the normal sterile fashion in the dorsal supine position with a leftward tilt. Anesthesia was tested and found to be adequate. A Pfannensteil skin incision was then made with the scalpel and carried through to the underlying layer of fascia with the scalpel. The fascia was incised in the midline and the incision extended laterally with the Crain scissors. The superior aspect of the fascial incision was then grasped with Chaz clamps, elevated with the help of the research lab assistant, and the underlying rectus muscles dissected off bluntly and sharply where needed. Attention was then turned to the inferior aspect of the incision which, in a similar fashion, was grasped, tented up with Chaz clamps, and the rectus muscle dissected off bluntly and sharply with Crain scissors. The rectus muscles were then in the midline, and the peritoneum was identified and entered bluntly. The peritoneal incision was then extended with good visualization of the bladder. Retraction was provided by the research lab assistant. The bladder blade was then inserted and the vesicouterine peritoneum identified, grasped with pick-ups and entered sharply with the Metzenbaum scissors. The incision was then extended laterally and the bladder flap created digitally. The bladder blade was then reinserted and the lower uterine segment incised in a transverse fashion with the scalpel, with the research lab assistant providing suction. The uterine incision was then extended superolaterally by pulling superolaterally on both sides. Membranes were ruptured with copious clear fluid present. The bladder blade was removed the infant's head was flexed out of LIZET position and delivered atraumatically, with fundal pressure by the research lab assistant as well as vacuum-assistance with 2 pulls. The nose and mouth were suctioned with bulb suction and the cord was clamped and cut after 1 minute. The was handed off to the waiting nursing staff. Cord blood was collected for Rh status. The placenta was then delivered with gentle cord traction. The uterus was then exteriorized and cleared of all clots and debris. The uterine incision was repaired with O-Vicryl in a running, locked fashion. A second layer of the same suture was used to obtain excellent hemostasis. The uterus was returned to the abdomen. The gutters were cleared of all clots. Hysterotomy was investigated and found to be hemostatic. The fascia was reapproximated with O-Vicryl in a running fashion. The subcutaneous tissue was reapproximated with 3-O Vicryl. The skin was closed with 4-O Vicryl. The research lab assistant helped with retraction during closures. SPONGE AND NEEDLE COUNTS: Correct x3. DRESSING: CATA ANTICOAGULATION: SCDs applied prior to Surgery Preop antibiotics given (see MAR). The patient was taken to recovery room having tolerated procedure well. Complications: none Baby 1: Gender: Male Presentation: vertex Position: Left Occiput Anterior Placental Delivery Description: Spontaneous Cord Vessel Description: 3 Vessels score (1 min): 9 score (5 min): 9 weight: 8 lb 14.225 oz Post-operative Condition: stable Disposition: PACU Aftercare: routine postop
[2024-05-16] MEDS: ACETAMINOPHEN IV 1,000 MG/100 ML VIAL 400 MG IV (12:33)
[2024-05-16] MEDS: CALCIUM CARBONATE 500 MG TAB 1000 MG PO (13:42)
[2024-05-16] MEDS: KETOROLAC 30 MG/ML VIAL IV ×2 (15:22→21:26)
[2024-05-16] MEDS: ACETAMINOPHEN 325 MG TABLET 650 MG PO (18:06)
[2024-05-17] MEDS: ACETAMINOPHEN 325 MG TABLET 650 MG PO ×5 (00:14→23:57)
[2024-05-17] MEDS: KETOROLAC 30 MG/ML VIAL IV (03:43)
[2024-05-17 07:00] LABS: Add Manual Diff / Slide Review NO; Basophils Absolute Auto 0 /uL (0-100); Basophils Percent Auto 0.4 % (0-2); Eosinophils Absolute Auto 0 /uL (0-450); Eosinophils Percent Auto 0.1 % (2-4); Hemoglobin 9.6 g/dL (12.0-16.0); Lymphocytes Absolute Auto 2600 /uL (1100-4500); Lymphocytes Percent Auto 22.9 % (25-40); Mean Corpuscular HGB Conc 34.2 % (30-36); Mean Corpuscular Hemoglobin 27.2 PG (26-34); Mean Corpuscular Volume 79.3 fL (80-100); Monocytes Absolute Auto 900 /uL (0-900); Monocytes Percent Auto 8.2 % (3-14); Neutrophils Absolute Auto 7800 /uL (1500-7000); Neutrophils Percent Auto 68.4 % (50-75); Platelet Count 185 X10^3/uL (150-400); Red Blood Cell Count 3.53 X10^6/uL (4.0-5.2); White Blood Cell Count 11.5 X10^3/uL (4.5-11.0)
[2024-05-17] MEDS: PRENATAL VIT,CALC/IRON/FOLIC 1 TABLET 1 TAB PO (11:59)
[2024-05-17] MEDS: IBUPROFEN 600 MG TABLET PO ×3 (11:59→23:57)
[2024-05-17] MEDS: DOCUSATE 100 MG CAPSULE PO (12:00)
--- NOTE | 2024-05-17 20:14 | PM.OBPN.1 ---
Subjective - OB Subjective Narrative: Patient reports that she is doing well. Her lochia is decreasing appropriately. She has voided successfully. She has passed flatus. She is with good latch. She had severe nausea immediately after surgery, now improved and eating without isssues. Her pain is well controlled. Exam Vital Signs (past 8 hours): Oxygen Delivery Method Room Air Resp Auscultation: clear to auscultation bilaterally Cardio Rate: regular rate Rhythm: regular rhythm Heart Sounds: S1 normal, S2 normal and no murmurs GI Inspection: non-distended, incision (dressing c/d/i) and obesity Palpation: soft, No guarding and tender (appropriately tender) Auscultation: normal bowel sounds Other: fundus firm and below the umbilicus Extrem Right upper extremity: no edema Objective Labs 05/17/24 06:45 Labs: Laboratory Results - last 24 hr 05/17/24 06:45 WBC 11.5 H RBC 3.53 L Hgb 9.6 L Hct 28.0 L MCV 79.3 L MCH 27.2 MCHC 34.2 RDW 15.0 H Plt Count 185 Neut % (Auto) 68.4 Lymph % (Auto) 22.9 L [place] % (Auto) 8.2 Eos % (Auto) 0.1 L Baso % (Auto) 0.4 Neut # (Auto) 7800 H Lymph # (Auto) 2600 [place] # (Auto) 900 Eos # (Auto) 0 Baso # (Auto) 0 Assessment & Plan Plan Comments: Pt is a 28yo POD#1 s/p repeat without complications. Pt doing well. - Normal care - support Time-Based Coding :: [TOTAL MINUTES] spent with patient and on the chart (including review of chart, obtaining history, exam, reviewing outside data, placing orders, documenting exam and treatment plan, and counseling patient) on [DATE].
[2024-05-18] MEDS: IBUPROFEN 600 MG TABLET PO ×2 (05:54→12:54)
[2024-05-18] MEDS: ACETAMINOPHEN 325 MG TABLET 650 MG PO ×2 (05:55→12:53)
[2024-05-18] MEDS: LANOLIN OINT 7 GM 1 APPLIC TOP (05:55)
[2024-05-18] MEDS: DOCUSATE 100 MG CAPSULE PO (10:41)
[2024-05-18] MEDS: PRENATAL VIT,CALC/IRON/FOLIC 1 TABLET 1 TAB PO (10:41)
--- NOTE | 2024-05-18 12:26 | PM.OBDS.1 ---
Discharge Providers Provider Date of admission: 05/16/24 05:46 Discharge Date: 05/18/24 Primary care physician: Noy Ladd MD Consults: 05/16/24 10:19 Consult to Retail Event Coordinator Routine Comment: Discharge provider: Noy Ladd MD Summary Hospital Course Date Patient Seen: 05/18/24 Diagnoses: 39w5d gestation GBS negative Rh positive Hx of prior Hospital Course: The pt presented for scheduled repeat . The surgery was without complications and the pt delivered a viable baby boy. , there were no complications. At the time of discharge she was voiding, ambulating, and passing flatus without difficulty. Her lochia was decreasing appropriately. Her pain was well controlled. She was with good latch. She will f/u in 6 weeks for check. Peripartum Data Infant Delivery Method: Section Procedures: Repeat complications: none 1: Gender: Male Disposition of : home Time Spent with Patient Time attestation: Total time spent providing and/or coordinating discharge services: Objective Labs 05/17/24 06:45 Exam Vital Signs (past 8 hours): Oxygen Delivery Method Room Air Resp Auscultation: clear to auscultation bilaterally Cardio Rate: regular rate Rhythm: regular rhythm Heart Sounds: S1 normal, S2 normal and no murmurs GI Inspection: non-distended, incision (dressing c/d/i, dry blood present same amount as yesterday) and obesity Palpation: soft, No guarding and tender (appropriately tender) Auscultation: normal bowel sounds Other: fundus firm and below the umbilicus Extrem Right upper extremity: no edema Discharge Plan Discharge Plan Patient Disposition: Home Discharge orders & Medications Prescriptions: New acetaminophen 325 mg Tablet 650 mg PO Q6H Qty: 30 0RF docusate sodium 100 mg Capsule 100 mg PO DAILY Qty: 30 0RF ibuprofen 600 mg Tablet 600 mg PO Q6H Qty: 60 0RF oxycodone 5 mg Tablet 5 mg PO Q4H PRN (Reason: Pain, Moderate (4-6)) Qty: 30 0RF Continued (DME) breast pump Device See Rx Instructions .ROUTE .MEDSUPPLY Qty: 1 0RF Rx Instructions: As directed [id number] oil 400 mcg-35 mg -25 mg-5 mg tablet,chewable 1 tab PO DAILY Follow up/Referrals: Noy Ladd MD [Primary Care Provider] - (1 week Incision check w/ Dr. Ladd: @ 9:45am. Please make 6 week follow up with Dr. Ladd!) Diet/Activity/Treatments Diet: Diet as Tolerated and Regular Skin/Wound/Dressing Care Report to your healthcare provider any signs of infection, such as:: chills, fever, night sweats and increased pain Visit Report/Discharge Packet Instructions: DI for Stand Alone Forms: Discharge: Care, Patient Portal/API, Stroke Signs & Symptoms Discharge Data Primary Care Provider: Noy Ladd
== END 2024-05-18 15:21 | disposition home or self-care (01) | DRG 788 ==
PROVIDERS: Admitting Provider Family Medicine; PCP Family Medicine; Referring Provider Family Medicine; Visit Provider Family Medicine
PROC: 10D00Z1 Extraction of Products of Conception, Low, Open Approach (ICD-10-PCS; CPT 59514; principal; 2024-05-16 07:45)
DX: O34.211 Maternal care for low transverse scar from previous cesarean delivery (principal); Z3A.39 39 weeks gestation of pregnancy; Z37.0 Single live birth
CPT/HCPCS: 36415; 59050; 85025; 86850; 86900; 86901; J0136; J0690; J1100; J1885; J2274; J2405; J2765